=== PATIENT | female | born 1945 ===

== ENCOUNTER 2023-10-16 14:07 | Outpatient (CLI) | payer MEDICARE, SELFPAY ==
--- NOTE | ~2023-10-16 | MR_ITS ---
MRI of the left knee Clinical history: Osteoarthritis Technique: Coronal proton density and proton density-weighted images, sagittal proton-density and T2 fat-sat images, and axial proton-density fat-saturated images were acquired. Findings: Anterior and posterior cruciate ligaments are intact. Medial collateral ligament and the la teral collateral ligament complex are intact. Popliteus tendon is intact. There is a radial tear at the posterior root of the medial meniscus. No lateral meniscal tear seen. 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 There is extensive high-grade chondromalacia of the medial femoral trochlea. There is extensive high-grade chondromalacia of the medial compartment. Lat eral compartment cartilage is relatively well preserved. There is a linear subchondral insufficiency fracture of the medial tibial plateau with extensive surrounding amorphous marrow edema. There is als o a linear subchondral insufficiency fracture of the medial femoral condyle, again with extensive suhail rounding amorphous marrow edema. Extensor mechanism is intact. Small joint effusion present. No Jimenez's cyst. Impression: Radial tear of the posterior root of the medial meniscus. Findings consistent with subchondral sufficiency fractures of the medial femoral condyle and medial t ibial plateau, with extensive surrounding amorphous marrow edema in both locations. Advanced degenerative change of the medial and patellofemoral compartments, as detailed above. Reviewed, dictated and finalized at location M. Impression: Radial tear of the posterior root of the medial meniscus. Findings consistent with subchondral sufficiency fractures of the medial femora l condyle and medial tibial plateau, with extensive surrounding amorphous marro w edema in both locations. Advanced degenerative change of the medial and patellofemoral compartments, as detailed above.
== END 2023-10-16 14:08 ==
PROVIDERS: PCP Physician Assistant; Visit Provider Physician Assistant
DX: M17.12 Unilateral primary osteoarthritis, left knee (principal); S83.242A Other tear of medial meniscus, current injury, left knee, initial encounter; X58.XXXA Exposure to other specified factors, initial encounter
CPT/HCPCS: 73721